=== PATIENT | male | born 1965 | race Caucasian/White ===

== ENCOUNTER 2019-06-26 09:01 | Emergency (ER) | payer OTHER ==
[~2019-06-26] VITALS: Ht 180.3 cm; Wt 89.8 kg
[2019-06-26] MEDS ORDERED: FAMOTIDINE (20 MG) 20 MG TABLET PO ONE (09:30)
[2019-06-26] MEDS ORDERED: predniSONE 50 MG TABLET PO ONE (09:30)
[2019-06-26] MEDS ORDERED: FAMOTIDINE (20 MG) 20 MG TABLET ONE (09:36)
[2019-06-26] MEDS ORDERED: predniSONE 10 MG TABLET ONE (09:36)
[2019-06-26] MEDS ORDERED: predniSONE 20 MG TABLET ONE (09:37)
--- NOTE | 2019-06-26 10:00 | NUR ---
PT CAME TO ER FOR RASH THAT HAS APPEARED ON HIS HEAD, TORSO, ARMS, AND NECK AFTER TAKING BACTRIM ANTIBIOTIC FOR HIS EYE. THIS REACTION TOWARDS THE ANTIBIOTIC PRESENTS A SUN-BURN LIKE RASH. AAOX4. NO SOB. EVEN AND UNLABORED BREATHING. VITAL SIGNS ARE STABLE. WILL CONTINUE TO MONITOR.
[2019-06-26] MEDS ORDERED: ACETAMINOPHEN ES 500 MG TABLET ONE (10:05)
[2019-06-26 10:23] VITALS: BP 123/74
--- NOTE | 2019-06-26 10:23 | NUR ---
Patient discharged to home in stable condition. Written and verbal after care instructions given. Patient verbalizes understanding of instruction.
--- NOTE | 2019-06-26 10:23 | NUR ---
ARM BAND REMOVED
[2019-06-26] MEDS ORDERED: ACETAMINOPHEN ES 500 MG TABLET PO ONE (10:30)
== END 2019-06-26 10:24 | disposition home or self-care (01) ==
LOC: ER 09:16
DX: L27.0 Generalized skin eruption due to drugs and medicaments taken internally (principal); Z88.0 Allergy status to penicillin; Z98.890 Other specified postprocedural states; Z88.2 Allergy status to sulfonamides
CPT/HCPCS: 99284; J7512 ×2